=== PATIENT | female | born 1965 | race Caucasian/White ===

== ENCOUNTER 2017-03-24 16:03 | Emergency (ER) | payer OTHER ==
[~2017-03-24] VITALS: Ht 162.6 cm; Wt 73.0 kg
[~2017-03-24 16:03] MED LIST: FOLI-43 PO; LOPERAMIDE; NAPR-681 PO; ONDA4TAB5 PO; PRED5TAB48 PO; RANI15SY PO
[2017-03-24 16:16] VITALS: BP 121/66
== END 2017-03-25 00:17 | disposition left against medical advice (07) ==
LOC: ER 16:16
DX: Z53.21 Procedure and treatment not carried out due to patient leaving prior to being seen by health care provider (principal)

== ENCOUNTER 2017-08-09 13:17 | Emergency (ER) | payer OTHER ==
[~2017-08-09] VITALS: Ht 154.9 cm; Wt 71.0 kg
[2017-08-09 13:40] VITALS: BP 99/48
== END 2017-08-09 15:21 | disposition home or self-care (01) ==
LOC: ER 14:02
DX: J10.1 Influenza due to other identified influenza virus with other respiratory manifestations (principal); H66.93 Otitis media, unspecified, bilateral; M32.9 Systemic lupus erythematosus, unspecified; Z87.440 Personal history of urinary (tract) infections
CPT/HCPCS: 71010; 81025; 87804; 99285